=== PATIENT | male | born 1980 | race Caucasian/White ===

== ENCOUNTER 2017-01-24 22:34 | Emergency (ER) | payer OTHER ==
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
[2017-01-24 23:34] VITALS: BP 126/100
[2017-01-25] MEDS ORDERED: Ketorolac 30 MG/ML SDV IM ONE (00:31)
== END 2017-01-25 01:02 | disposition home or self-care (01) ==
LOC: DL.ED 22:34
DX: S46.911A Strain of unspecified muscle, fascia and tendon at shoulder and upper arm level, right arm, initial encounter (principal); S16.1XXA Strain of muscle, fascia and tendon at neck level, initial encounter; S39.013A Strain of muscle, fascia and tendon of pelvis, initial encounter; E78.00 Pure hypercholesterolemia, unspecified; E11.9 Type 2 diabetes mellitus without complications; F17.210 Nicotine dependence, cigarettes, uncomplicated; Z91.018 Allergy to other foods; Z79.84 Long term (current) use of oral hypoglycemic drugs; Z79.899 Other long term (current) drug therapy; V89.2XXA Person injured in unspecified motor-vehicle accident, traffic, initial encounter
CPT/HCPCS: 72125; 72170; 73030; 96372; 99284; J1885; J2360

== ENCOUNTER 2017-04-13 11:24 | Emergency (ER) | payer OTHER ==
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
[2017-04-13] MEDS ORDERED: Ciprofloxacin in D5W 400 MG in Premix Bag 1 BAG IV ONE ×2 (11:57)
[2017-04-13] MEDS ORDERED: metroNIDAZOLE/Normal Saline 500 MG in Premix Bag 100 BAG IV ONE (11:57)
[2017-04-13] MEDS ORDERED: Sodium Chloride 0.9% 1,000 ML IV SCH (12:00)
[2017-04-13] MEDS ORDERED: Diphtheria,Pertussis(Acell),Tetanus Vaccine 0.5 ML SDV IM ONE (12:46)
[2017-04-13 13:09] VITALS: BP 122/74
== END 2017-04-13 14:58 ==
LOC: DL.ED 11:24
DX: S81.832A Puncture wound without foreign body, left lower leg, initial encounter (principal); E11.9 Type 2 diabetes mellitus without complications; F17.210 Nicotine dependence, cigarettes, uncomplicated; Z23 Encounter for immunization; Z79.899 Other long term (current) drug therapy; W27.4XXA Contact with kitchen utensil, initial encounter
CPT/HCPCS: 36415; 73700; 85025; 85651; 86140; 90715; 96365; 96367; 96372; 99284; J0744; J7030

== ENCOUNTER 2017-07-07 09:13 | Emergency (ER) | payer OTHER ==
[2017-07-07 09:21] VITALS: BP 152/84
[2017-07-07 10:14] LABS: ANION GAP 14.2; CHLORIDE,CL 101 mmol/L (101-111); SODIUM,NA 137 mmol/L (135-145)
[2017-07-07] MEDS ORDERED: Ketorolac 30 MG/ML SDV IM ONE (10:21)
[2017-07-07] MEDS ORDERED: methylPREDNISolone Sodium Succinate 125 MG/2 ML SDV IVPUSH ONE (10:21)
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
[2017-07-07] MEDS ORDERED: methylPREDNISolone Sodium Succinate 125 MG/2 ML SDV IM ONE (10:30)
== END 2017-07-07 10:51 | disposition home or self-care (01) ==
LOC: DL.ED 09:13
DX: S76.911A Strain of unspecified muscles, fascia and tendons at thigh level, right thigh, initial encounter (principal); E11.9 Type 2 diabetes mellitus without complications; E78.00 Pure hypercholesterolemia, unspecified; Z98.890 Other specified postprocedural states; Z87.891 Personal history of nicotine dependence; Z79.84 Long term (current) use of oral hypoglycemic drugs; Z79.899 Other long term (current) drug therapy; Z91.018 Allergy to other foods; X58.XXXA Exposure to other specified factors, initial encounter
CPT/HCPCS: 36415; 80053; 85025; 85379; 96372; 99284; J1885; J2930

== ENCOUNTER 2017-09-15 04:33 | Emergency (ER) | payer OTHER ==
[2017-09-15 04:38] VITALS: BP 147/84
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
== END 2017-09-15 05:15 | disposition home or self-care (01) ==
LOC: DL.ED 04:33
DX: J11.1 Influenza due to unidentified influenza virus with other respiratory manifestations (principal); E78.00 Pure hypercholesterolemia, unspecified; E11.9 Type 2 diabetes mellitus without complications; Z91.018 Allergy to other foods; Z79.899 Other long term (current) drug therapy; Z87.891 Personal history of nicotine dependence
CPT/HCPCS: 87804; 99283

== ENCOUNTER 2022-01-11 19:30 | Emergency (ER) | payer OTHER ==
[2022-01-11] MEDS ORDERED: Fluorescein 1 MG Ophth Strip EYERT ONE (20:11)
[2022-01-11] MEDS ORDERED: Tetracaine HCl/PF 0.5% 4 ML Bottle EYERT ONE (20:11)
[2022-01-11] MEDS ORDERED: diphenhydrAMINE 50 MG/ML SDV IVPUSH ONE ×2 (21:00→22:06)
[2022-01-11] MEDS ORDERED: methylPREDNISolone Sodium Succinate 125 MG/2 ML SDV IVPUSH ONE (21:00)
[2022-01-11] MEDS ORDERED: Bacitracin/Polymyxin B Ophth Oint 3.5 GM Tube ONE (22:13)
[2022-01-11 22:23] VITALS: BP 158/92; PULSE 81
== END 2022-01-11 22:36 | disposition home or self-care (01) ==
LOC: DL.ED 19:30
DX: H10.211 Acute toxic conjunctivitis, right eye (principal); T50.905A Adverse effect of unspecified drugs, medicaments and biological substances, initial encounter; L25.9 Unspecified contact dermatitis, unspecified cause; E78.00 Pure hypercholesterolemia, unspecified; E11.9 Type 2 diabetes mellitus without complications; Z79.4 Long term (current) use of insulin; Z79.899 Other long term (current) drug therapy; Z91.018 Allergy to other foods
CPT/HCPCS: 96374; 96375; 99282; A9270; J1200; J2930